=== PATIENT | male | born 1940 | race Caucasian/White ===

== ENCOUNTER → 2017-07-28 | Outpatient (CLI) | payer OTHER ==
[~2017-07-28] MED LIST: ALBU6.7H INH; ALLO100T30 PO; BUDE10.2 INH; CARV3.122 PO; CHOL2000 PO; FLUT9.9S NAS; FURO20TA3 PO; LISI2.5T PO; Oxygen INH; SIMV40TA3 PO; TIOT18CA INH
[2017-07-28 10:24] LABS: ALANINE AMINOTRANSFERASE 10 U/L (12-78); ALBUMIN 3.9 g/dL (3.4-5.0); ANION GAP 5 mmol/L (5-15); CHLORIDE 109 mmol/L (98-107); CREATININE 1.05 mg/dL (0.7-1.3)
[2017-07-28 10:26] LABS: ALKALINE PHOSPHATASE 117 U/L (45-117); BILIRUBIN,TOTAL 0.6 mg/dL (0.2-1.0); TOTAL PROTEIN 7.6 g/dL (6.4-8.2)
== END | disposition home or self-care (01) ==
LOC: STAR 09:11
PROVIDERS: ATTEND Internal Medicine
DX: Z01.818 Encounter for other preprocedural examination (principal); C15.9 Malignant neoplasm of esophagus, unspecified
CPT/HCPCS: 36415; 80053; 93005

== ENCOUNTER 2017-08-08 10:33 | Day surgery (SDC) | payer OTHER ==
[~2017-08-08] VITALS: Ht 175.3 cm; Wt 89.9 kg
[2017-08-08 11:15] VITALS: BP 132/70
[2017-08-08] MEDS ORDERED: LACTATED RINGERS 1,000 ML IV SCH (11:20)
[2017-08-08] MEDS ORDERED: FLUC200T PO (11:24)
[2017-08-08] MEDS ORDERED: LIDOCAINE 1%, 2ML SQ PRN (11:30)
[2017-08-08] MEDS ORDERED: PROPOFOL 10 MG/ML, 20ML ONE ×2 (12:53→13:31)
[2017-08-08] MEDS ORDERED: LIDOCAINE-MPF 2% ,5ML ONE (12:53)
== END 2017-08-08 16:35 ==
LOC: OUT 10:33
PROVIDERS: ATTEND Internal Medicine Geriatric Medicine
DX: C15.5 Malignant neoplasm of lower third of esophagus (principal); K21.9 Gastro-esophageal reflux disease without esophagitis; J44.9 Chronic obstructive pulmonary disease, unspecified; M10.9 Gout, unspecified; Z87.891 Personal history of nicotine dependence
CPT/HCPCS: 43242; 88104; 88305; J2704; J3490; J7120